=== PATIENT | female | born 1960 | race Caucasian/White ===

== ENCOUNTER 2020-04-08 17:48 | Observation (INO) | payer OTHER ==
--- NOTE | 2020-04-08 18:16 | PDOC ---
Rapid Medical Evaluation Time Seen by Provider: 04/08/20 18:13 Medical Evaluation: Allergies Allergy/AdvReac Type Severity Reaction Status Date / Time No Known Allergies Allergy Verified 04/08/20 18:13 04/08/20 18:13 Pt with PMH of HTN presents for evaluation of L sided chest pain starting yesterday. Exam: RRR, S1S2, lungs CTAB Orders: labs, EKG, IV Pt to proceed to the ER for further evaluation Discharge Disposition - Diagnosis Chest pain - Referrals - Patient Instructions - Post Discharge Activity
--- NOTE | 2020-04-08 20:23 | PDOC ---
Attending Attestation - Resident Resident Name: Delmy Scott - ED Attending Attestation I have performed the following: I have examined & evaluated the patient, The case was reviewed & discussed with the resident, I agree w/resident's findings & plan - HPI HPI: 04/08/20 20:15 see resident hpi - Physicial Exam PE: 04/08/20 20:16 see resident exam - Medical Decision Making 04/08/20 20:33 59-year-old female with 2 days of central chest pressure, reproducible on initial exam though with EKG significant for T wave inversions in leads V1 through V3 with no documented cardiac history Pending chest x-ray and labs will plan for telemetry observation Discharge - Discharge Information Problems reviewed: Yes Clinical Impression/Diagnosis: Chest pain - Follow up/Referral Referrals: ON STAFF,NOT [Primary Care Provider] - - Patient Discharge Instructions - Post Discharge Activity
--- NOTE | 2020-04-08 20:47 | PDOC ---
History of Present Illness - General Chief Complaint: Chest Pain Stated Complaint: CHEST PAIN Time Seen by Provider: 04/08/20 18:13 Past History - Medical History Allergies/Adverse Reactions: Allergies Allergy/AdvReac Type Severity Reaction Status Date / Time No Known Allergies Allergy Verified 04/08/20 18:13 COPD: No HTN: Yes - Psycho-Social/Smoking History Smoking History: Never smoked Have you smoked in the past 12 months: No - Substance Abuse Hx (Audit-C & DAST Scrn) How often the patient has a drink containing alcohol: Never Score: In Men: 4 or > Positive; In Women: 3 or > Positive: 0 Screen Result (Pos requires Nsg. Audit-10AR): Negative In the last yr the pt used illegal drug/Rx for NonMed reason: No Score: Yes response is considered Positive: 0 Screen Result (Positive result requires Nsg. DAST-10): Negative *Physical Exam - Vital Signs Last Vital Signs Temp Pulse Resp BP Pulse Ox 98.2 F 85 18 127/81 100 04/08/20 18:13 04/08/20 18:13 04/08/20 18:13 04/08/20 18:13 04/08/20 18:13 Heart Score/ECG Review - History History: Slightly suspicious - Electrocardiogram EKG: Non specific repolarization disturbance - Age Age: 45-65 - Risk Factors Risk Factors Heart Score: Yes Hx Hypertension, Yes Hx Obesity Based on the list above the patient has:: 1-2 risk factors - Troponin Troponin: </= normal limit - Score Heart Score - Total: 3 ED Treatment Course - LABORATORY CBC & Chemistry Diagram: 04/08/20 20:45 04/08/20 20:45 Medical Decision Making - Medical Decision Making 04/08/20 20:42 59yo F hx HTN (noncompliant with meds) presents from home c/o 2 days constant gradual onset mid-chest nonradiating chest pain unknown type nonpleuritic worse with palpation but not with movement started while cleaning (vacuuming, moving things, etc), worsening, no pain meds tried, no associated sx including N/V/lightheadedness/numbness/tingling/weakness/SOB/palpitations/F/C. Denies sick contacts, cough, fever, travel, smoking, hx DVT/PE, car rides or planes, recent surgeries, hx CA. PE notable for reproducible sternal CP HEART score 3 -EKG -CXR -CBC,CMP,Cardiac profile -Aspirin EKG: NSR, 83bpm, normal xis, normal intervals, TWIs in V1/V2/V3, no ST elevations or depressions, no priors for comparison CXR reviewed: No acute pathology Labs reviewed. No concerning findings. Trop neg. Admit tele obs ACS r/o Discharge - Discharge Information Problems reviewed: Yes Clinical Impression/Diagnosis: Chest pain Condition: Stable - Admission Yes - Follow up/Referral Referrals: ON STAFF,NOT [Primary Care Provider] - - Patient Discharge Instructions - Post Discharge Activity
[2020-04-08] MEDS ORDERED: ASPIRIN 81 MG CHEWABLE TABLETS PO ONE (20:55)
[2020-04-08 21:13] LABS: BASO % 0.6 % (0-2.0); EOS % 0.5 % (0-4.5); HEMATOCRIT 40.5 % (32.4-45.2); HEMOGLOBIN 13.5 GM/dL (10.7-15.3); LYMPH % 27.9 % (8-40); MCH 30.9 pg (25.7-33.7); MCHC 33.2 g/dl (32.0-36.0); MEAN CELL VOLUME 92.9 fl (80-96); MEAN PLT VOLUME 8.3 fl (7.5-11.1); MONO % 8.4 % (3.8-10.2); NEUT % 62.6 % (42.8-82.8); PLATELET COUNT 280 K/MM3 (134-434); RBC 4.36 M/mm3 (3.60-5.2); RDW 13.5 % (11.6-15.6); WHITE BLOOD COUNT 8.2 K/mm3 (4.0-10.0)
[2020-04-08] MEDS ORDERED: ASPIRIN 81 MG CHEWABLE TABLETS ONE (21:17)
[2020-04-08 21:21] LABS: INR 1.02 (0.83-1.09)
[2020-04-08 21:49] LABS: ALBUMIN 3.6 g/dl (3.4-5.0); ALK PHOS 130 U/L (45-117); ANION GAP 6 MMOL/L (8-16); BILIRUBIN,TOTAL 0.3 mg/dL (0.2-1); BLOOD UREA NITROGEN 16.9 mg/dL (7-18); CALCIUM 9.2 mg/dL (8.5-10.1); CHLORIDE 107 mmol/L (98-107); CO2 29 mmol/L (21-32); CREATININE 0.8 mg/dL (0.55-1.3); GLUCOSE,RANDOM 87 mg/dL (74-106); MAGNESIUM 2.3 mg/dL (1.8-2.4); POTASSIUM 4.5 mmol/L (3.5-5.1); SGOT/AST 24 U/L (15-37); SGPT/ALT 31 U/L (13-61); SODIUM 142 mmol/L (136-145); TOT PROT 7.1 g/dl (6.4-8.2)
--- OUTSIDE RECORDS SUMMARY | 2020-04-08 22:21 | XMS ---
:1960 Author Organization [facility] Care Team Providers Name Role Phone ALEJANDRA GOTTLIEB Unavailable Unavailable Re-disclosure Warning The records that you are about to access may contain information from federally- assisted alcohol or drug abuse programs. If such information is present, then the following federally mandated warning applies: This information has been disclosed to you from records protected by federal confidentiality rules (42 CFR part 2). The federal rules prohibit you from making any further disclosure of this information unless further disclosure is expressly permitted by the written consent of the person to whom it pertains or as otherwise permitted by 42 CFR part 2. A general authorization for the release of medical or other information is NOT sufficient for this purpose. The Federal rules restrict any use of the information to criminally investigate or prosecute any alcohol or drug abuse patient.The records that you are about to access may contain highly sensitive health information, the redisclosure of which is protected by Article 27-F of the [facility] Public Health law. If you continue you may haveaccess to information: Regarding HIV / AIDS; Provided by facilities licensed or operated by the [facility] Office of Mental Health; or Provided by the [facility] Office for People With Developmental Disabilities. If such information is present, then the following [facility] mandated warning applies: This information has been disclosed to you from confidential records which are protected by state law. State law prohibits you from making any further disclosure of this information without the specific written consent of the person to whom it pertains, or as otherwise permitted by law. Any unauthorized further disclosure in violation of state law may result in a fine or nursing home sentence or both. A general authorization for the release of medical or other information is NOT sufficient authorization for further disclosure. Encounters Encounter Providers Location Date Indications Data Source(s ) Outpatient Attender: [facility] 02/08/2020 Z03.818 [facility] ALEJANDRA BarrettAdmitter: 06:00:00 AM Health [facility] ALEJANDRA EDT [employer] E.Referrer: ALEJANDRA GOTTLIEB Z03.818 Insurance Providers Payer name Policy type Policy ID Covered Covered constitution party's Policy P pratima / Coverage constitution party ID relationship to Short Inf ormation type short TROY [id number] SP [id number] 400 HEALTH NON CAP Problems, Conditions, and Diagnoses Code Display Name Description Problem Type Effective Data Sour ce(s) Dates Z03.818 Encounter for ENCNTR FOR OBS Diagnosis 02/08/2020 [facility] observation for FOR SUSP EXPSR TO 06:00:00 AM [facility] suspected OTH BIOLG AGENTS [facility] Care [facility] poration exposure to other RULED OUT biological agents ruled out Results ID Date Data Source [id number] 02/08/2020 12:00:00 AM EDT [facility] Name Value Range Interpretation Code Description Data Sheryl rce(s) Supporting Document(s ) 2019-nCoV [facility] RNA XXX ZARA+probe- Imp This lab was ordered by [facility] and reported by [employer] Procedure
--- NOTE | 2020-04-08 22:31 | PN ---
Teaching Attending Note Name of Resident: Monika Hays ATTENDING PHYSICIAN STATEMENT I saw and evaluated the patient. I reviewed the resident's note and discussed the case with the resident. I agree with the resident's findings and plan as documented. SUBJECTIVE: 59yoF with h/o HTN no longer on medication who presents with 2 days of chest pain. Patient states she was vacuuming when she developed sudden, central chest pain that worsens with palpation. Denies shortness of breath, diaphoresis, palpitations, lightheadedness, syncope, cough. No known cardiac history. Has not taken any medications to try to alleviate the pain, which is constant and does not radiate. Patient noted to have reproducible chest pain on ED examination. EKG showed TWI in V1-V3 with no priors available for comparison. Labs unremarkable including negative troponin. CXR unremarkable. Patient received aspirin 324mg. OBJECTIVE: Last Vital Signs Temp Pulse Resp BP Pulse Ox 98.2 F 85 18 127/81 100 04/08/20 18:13 04/08/20 18:13 04/08/20 18:13 04/08/20 18:13 04/08/20 18:13 EXAM Gen: awake, alert, NAD HEENT: NC/AT. MMM CV: RRR, no MRG Resp: CTAB, unlabored Abd: Soft, NT, ND MSK: Chest pain reproducible to palpation lower sternum and parasternal. No peripheral edema Abd: SOft, NT, ND. +BS Neuro: CN II-XII grossly intact Psych: AOx3, appropriate mood/affect Laboratory Results - last 24 hr 04/08/20 04/08/20 04/08/20 20:45 20:45 20:45 WBC 8.2 RBC 4.36 Hgb 13.5 Hct 40.5 MCV 92.9 MCH 30.9 MCHC 33.2 RDW 13.5 Plt Count 280 MPV 8.3 Absolute Neuts (auto) 5.1 Neutrophils % 62.6 Lymphocytes % 27.9 Monocytes % 8.4 Eosinophils % 0.5 Basophils % 0.6 Nucleated RBC % 0 PT with INR 12.00 INR 1.02 Sodium 142 Potassium 4.5 Chloride 107 Carbon Dioxide 29 Anion Gap 6 L BUN 16.9 Creatinine 0.8 Est GFR (CKD-EPI)AfAm 94.19 Est GFR (CKD-EPI)NonAf 81.27 Random Glucose 87 Calcium 9.2 Magnesium 2.3 Total Bilirubin 0.3 AST 24 ALT 31 Alkaline Phosphatase 130 H Creatine Kinase 112 Troponin I < 0.02 Total Protein 7.1 Albumin 3.6 ASSESSMENT AND PLAN: 59yoF with h/o HTN no longer on medication who presents with 2 days of chest pain, found to have TWI in leads V1-V3. Abnormal EKG; reproducible chest pain EKG showing TWI in leads V1-V3, no prior available for comparison No known cardiac history Suspect chest pain is noncardiac, most likely musculoskeletal given reproducibility; however given abnormal EKG will observe - rpt EKG in AM - cycle troponin - lipids, A1c for risk stratification - echo - Tylenol, lidocaine patch h/o HTN: self-discontinued her medications. BP currently controlled. Monitor, consider resuming medications if needed DVT ppx: Lovenox subq
--- NOTE | 2020-04-08 22:32 | HP ---
CHIEF COMPLAINT:chest pain PCP: none HISTORY OF PRESENT ILLNESS: Pt is a 59 y/o female with HTN (has not taken meds in 2 weeks, pressure has been controlled) who presents with 1 day of sudden onset substernal chest pain. She says she was vacuuming yesterday afternoon when the pain started. It is a pressure, 8/10 in intensity. She did not take any OTC meds or applied heat or ice to it. Movement does not worsen the pain, only palpation. It does not radiate. She denies shortness of breath, headache, dizziness, changes in vision, nausea, vomiting, abdominal pain, or LE swelling. ER course was notable for: (1) trop negative x1 (2) CXR left costophrenic angle blunting (3) T wave inversions V1-V3 PAST MEDICAL HISTORY: HTN PAST SURGICAL HISTORY: none FAMILY HISTORY: mother-HTN Social History: Smoking: denies Alcohol: denies Drugs: denies Allergies No Known Allergies Allergy (Verified 04/08/20 18:13) HOME MEDICATIONS: losartan 100mg amlodipine 5mg has not taken in 2 weeks REVIEW OF SYSTEMS see HPI PHYSICAL EXAMINATION Vital Signs - 24 hr 04/08/20 18:13 Temperature 98.2 F Pulse Rate 85 Respiratory 18 Rate Blood Pressure 127/81 O2 Sat by Pulse 100 Oximetry (%) GENERAL: A&Ox3. HEAD: Normal with no signs of trauma. EYES: PERRL, EOMI. EARS, NOSE, THROAT: Ears normal, nares patent, moist mucous membranes. NECK: Normal range of motion. LUNGS: CTAB, no wheezes or crackles. Mid sternum tender to palpation as well as just laterally b/l. HEART: RRR, no murmur. ABDOMEN: Soft, nontender, not distended, normoactive bowel sounds. MUSCULOSKELETAL: Normal range of motion at all joints. UPPER EXTREMITIES: Warm, well-perfused. No peripheral edema. LOWER EXTREMITIES: Warm, well-perfused. No peripheral edema. NEUROLOGICAL: Cranial nerves II-XII grossly intact. Normal speech. PSYCHIATRIC: Cooperative. Good eye contact. Appropriate mood and affect. SKIN: Warm, dry, normal turgor. Laboratory Results - last 24 hr 04/08/20 04/08/20 04/08/20 20:45 20:45 20:45 WBC 8.2 RBC 4.36 Hgb 13.5 Hct 40.5 MCV 92.9 MCH 30.9 MCHC 33.2 RDW 13.5 Plt Count 280 MPV 8.3 Absolute Neuts (auto) 5.1 Neutrophils % 62.6 Lymphocytes % 27.9 Monocytes % 8.4 Eosinophils % 0.5 Basophils % 0.6 Nucleated RBC % 0 PT with INR 12.00 INR 1.02 Sodium 142 Potassium 4.5 Chloride 107 Carbon Dioxide 29 Anion Gap 6 L BUN 16.9 Creatinine 0.8 Est GFR (CKD-EPI)AfAm 94.19 Est GFR (CKD-EPI)NonAf 81.27 Random Glucose 87 Calcium 9.2 Magnesium 2.3 Total Bilirubin 0.3 AST 24 ALT 31 Alkaline Phosphatase 130 H Creatine Kinase 112 Troponin I < 0.02 Total Protein 7.1 Albumin 3.6 EKG HR 83, NSR, normal axis, normal intervals, T-wave inversions V1-V2, QTc 397 ASSESSMENT/PLAN: Pt is a 59 y/o female with HTN (has not taken meds in 2 weeks, pressure has been controlled) who presents with 1 day of sudden onset substernal chest pain. #chest pain -costochondritis vs r/o ACS, pain is reproducible, troponin negative x2 -T-wave inversions in V1-V2, no comparison available -Tylenol -lidocaine patch -repeat EKG -echo to check for wall motion abnormalities given T-wave inversions -card consult #HTN -pt has been normotensive -if pressure increases, may start amlodipine and/or losartan DVT Ppx Lovenox FEN no standing fluids monitor labs sodium-controlled diet dispo tele obs FULL CODE Family Medical History Family History: As Documented Visit type - Emergency Visit Emergency Visit: Yes ED Registration Date: 04/08/20 Care time: The patient presented to the Emergency Department on the above date and was hospitalized for further evaluation of their emergent condition. - New Patient This patient is new to me today: Yes Date on this admission: 04/09/20 - Critical Care Critical Care patient: No ATTENDING PHYSICIAN STATEMENT I saw and evaluated the patient. I reviewed the resident's note and discussed the case with the resident. I agree with the resident's findings and plan as documented. SUBJECTIVE: OBJECTIVE: ASSESSMENT AND PLAN:
[2020-04-08] MEDS ORDERED: ACETAMINOPHEN 325 MG TABLET (FP) PO PRN (23:32)
[2020-04-09] MEDS ORDERED: LIDOCAINE 5% TOPICAL PATCH TP ONE (04:13)
[2020-04-09 07:01] LABS: BASO % 0.3 % (0-2.0); EOS % 0.7 % (0-4.5); HEMATOCRIT 41.2 % (32.4-45.2); HEMOGLOBIN 13.6 GM/dL (10.7-15.3); LYMPH % 19.5 % (8-40); MCH 30.4 pg (25.7-33.7); MCHC 32.9 g/dl (32.0-36.0); MEAN CELL VOLUME 92.4 fl (80-96); MEAN PLT VOLUME 8.3 fl (7.5-11.1); MONO % 9.2 % (3.8-10.2); NEUT % 70.3 % (42.8-82.8); PLATELET COUNT 265 K/MM3 (134-434); RBC 4.45 M/mm3 (3.60-5.2); RDW 13.1 % (11.6-15.6); WHITE BLOOD COUNT 11.7 K/mm3 (4.0-10.0)
[2020-04-09 07:20] LABS: ALBUMIN 3.6 g/dl (3.4-5.0); BILIRUBIN,TOTAL 0.5 mg/dL (0.2-1); BLOOD UREA NITROGEN 19.3 mg/dL (7-18); CALCIUM 9.1 mg/dL (8.5-10.1); POTASSIUM 3.9 mmol/L (3.5-5.1); TOT PROT 6.7 g/dl (6.4-8.2)
[2020-04-09] MEDS ORDERED: ENOXAPARIN NA (PORCINE) 40 MG/0.4 ML DISP.SYRIN SQ ONE (08:14)
[2020-04-09] MEDS ORDERED: LIDOCAINE 5% TOPICAL PATCH ONE (08:14)
--- NOTE | 2020-04-09 08:37 | PN ---
Teaching Attending Note Name of Resident: Brook Lynne ATTENDING PHYSICIAN STATEMENT I saw and evaluated the patient. I reviewed the resident's note and discussed the case with the resident. I agree with the resident's findings and plan as documented. SUBJECTIVE: Patient is comfortable with NAD OBJECTIVE: Vital Signs Temperature 97.7 F 04/09/20 06:54 Pulse Rate 83 04/09/20 06:54 Respiratory Rate 17 04/09/20 06:54 Blood Pressure 151/92 04/09/20 06:54 O2 Sat by Pulse Oximetry (%) 98 04/09/20 06:54 PE: per resident's note CBCD WBC 11.7 K/mm3 (4.0-10.0) H 04/09/20 05:36 RBC 4.45 M/mm3 (3.60-5.2) 04/09/20 05:36 Hgb 13.6 GM/dL (10.7-15.3) 04/09/20 05:36 Hct 41.2 % (32.4-45.2) 04/09/20 05:36 MCV 92.4 fl (80-96) 04/09/20 05:36 MCHC 32.9 g/dl (32.0-36.0) 04/09/20 05:36 RDW 13.1 % (11.6-15.6) 04/09/20 05:36 Plt Count 265 K/MM3 (134-434) 04/09/20 05:36 MPV 8.3 fl (7.5-11.1) 04/09/20 05:36 CMP Sodium 143 mmol/L (136-145) 04/09/20 05:36 Potassium 3.9 mmol/L (3.5-5.1) 04/09/20 05:36 Chloride 110 mmol/L (98-107) H 04/09/20 05:36 Carbon Dioxide 27 mmol/L (21-32) 04/09/20 05:36 Anion Gap 6 MMOL/L (8-16) L 04/09/20 05:36 BUN 19.3 mg/dL (7-18) H 04/09/20 05:36 Creatinine 1.0 mg/dL (0.55-1.3) 04/09/20 05:36 Random Glucose 89 mg/dL (74-106) 04/09/20 05:36 Calcium 9.1 mg/dL (8.5-10.1) 04/09/20 05:36 Total Bilirubin 0.5 mg/dL (0.2-1) 04/09/20 05:36 AST 18 U/L (15-37) 04/09/20 05:36 ALT 28 U/L (13-61) 04/09/20 05:36 Alkaline Phosphatase 100 U/L (45-117) 04/09/20 05:36 Total Protein 6.7 g/dl (6.4-8.2) 04/09/20 05:36 Albumin 3.6 g/dl (3.4-5.0) 04/09/20 05:36 CARDIAC ENZYMES Creatine Kinase 112 U/L (26-192) 04/08/20 20:45 Troponin I < 0.02 ng/ml (0.00-0.05) 04/09/20 03:03 Current Medications Generic Name Dose Route Start Last Admin Trade Name Freq PRN Reason Stop Dose Admin Acetaminophen 975 mg 04/08/20 23:32 Tylenol - PO Q6H PRN PAIN LEVEL 1-5 Enoxaparin Sodium 40 mg 04/09/20 10:00 Lovenox - SQ DAILY ON LICENSE OF [facility] Lidocaine 1 patch 04/10/20 10:00 Lidoderm Patch - TP DAILY ON LICENSE OF [facility] Miscellaneous 1 each 04/09/20 16:00 Lidoderm Patch Removal MC 04/09/20 16:01 ONCE@1600 ONE Miscellaneous 1 each 04/10/20 22:00 Lidoderm Patch Removal MC DAILY@2200 DAVID CXR: no acute pathology ASSESSMENT AND PLAN: This patient is a 59yof with PMhx of HTN no longer on medication who presents with 2 days of chest pain, and placed on observation due to having abnl ekg changes with chest pain #Acute chest pain r/o ACS, trops x 3, check lipids, A1c, #EKG changes V1-V3 inversion: repeat EKG, cardio consult , echo, stress test in am #Hx of HTN: self-discontinued her medications. BP currently controlled. Monitor. consider resuming medications if needed DVT ppx: Lovenox subq
--- NOTE | 2020-04-09 08:47 | CON.CARD ---
Consult Consult Specialty:: cardiology Reason for Consultation:: chest pain - History of Present Illness Chief Complaint: Pt A&Ox3; anxious; chest pain absent presently; able to elicit similar ("but not exactly the same") pain with palpation of lower sternum History of Present Illness: Ms. Lucio is a 59-year-old woman (b. [facility]) with PMHx HTN (on amlodipine and losartan; takes them prn "because I do not like to take medications"), anxiety, obese, sedentary, ? cholesterol, who presented with 2 days of central chest pressure, reproducible on initial exam, though also with EKG significant for T wave inversions in leads V1 through V3; no documented cardiac history. Family hx: mother had IA age 70. The chest discomfort began after pt had been cleaning home, including vacuuming. Never smoked; no alcohol. 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 - History Source History Provided By: Patient, Family Member (son (Sandro; telephone)), Medical Record Limitations to Obtaining History: No Limitations - Past Medical History Cardio/Vascular: Yes: HTN Reproductive: Yes: Postmenopausal ...: No - Smoking History Smoking history: Never smoked Have you smoked in the past 12 months: No Home Medications - Allergies Allergies/Adverse Reactions: Allergies Allergy/AdvReac Type Severity Reaction Status Date / Time No Known Allergies Allergy Verified 04/08/20 18:13 - Home Medications Home Medications: Ambulatory Orders Amlodipine Besylate [Norvasc -] 5 mg PO DAILY 04/09/20 Famotidine [Pepcid -] 40 mg PO DAILY 04/09/20 Losartan Potassium 100 mg PO DAILY 04/09/20 Meloxicam 15 mg PO DAILY 04/09/20 Review of Systems - Review of Systems Constitutional: reports: No Symptoms Eyes: reports: No Symptoms HENT: reports: No Symptoms Neck: reports: No Symptoms Cardiovascular: reports: Chest Pain Respiratory: reports: Exercise Intolerance Gastrointestinal: reports: No Symptoms Genitourinary: reports: No Symptoms Breasts: reports: No Symptoms Reported Musculoskeletal: reports: No Symptoms Integumentary: reports: No Symptoms Neurological: reports: No Symptoms Endocrine: reports: No Symptoms Hematology/Lymphatic: reports: No Symptoms Psychiatric: reports: Anxiety - Risk Factors Known Risk Factors: Yes: Age, Hypercholesterolemia, Hypertension, Physical Inactivity Vital Signs: Vital Signs Temperature 97.7 F 04/09/20 06:54 Pulse Rate 83 04/09/20 06:54 Respiratory Rate 17 04/09/20 06:54 Blood Pressure 151/92 04/09/20 06:54 O2 Sat by Pulse Oximetry (%) 98 04/09/20 06:54 Constitutional: Yes: Anxious, Obese Eyes: Yes: WNL HENT: Yes: WNL Neck: Yes: WNL Respiratory: Yes: WNL Gastrointestinal: Yes: Soft, Abdomen, Obese Renal/: No: Anuria Cardiovascular: Yes: Regular Rate and Rhythm JVD: No Carotid Bruit: No PMI: Non-Displaced Heart Sounds: Yes: S1, S2, S4 Murmur: Yes: Systolic Murmur, Grade 1 Musculoskeletal: Yes: WNL Extremities: Yes: WNL Edema: No Peripheral Pulses WNL: Yes Integumentary: Yes: WNL Neurological: Yes: WNL ...Motor Strength: WNL Psychiatric: Yes: Alert, Oriented, Other (anxiety) - Other Data Labs, Other Data: CBC, BMP 04/09/20 05:36 04/09/20 05:36 INR, PTT INR 1.02 (0.83-1.09) 04/08/20 20:45 Troponin, BNP 04/08/20 04/09/20 20:45 03:03 Troponin I < 0.02 < 0.02 Troponin, BNP 04/08/20 04/09/20 20:45 03:03 Troponin I < 0.02 < 0.02 Laboratory Results - last 24 hr 04/09/20 04/09/20 04/09/20 03:03 05:36 05:36 WBC 11.7 H RBC 4.45 Hgb 13.6 Hct 41.2 MCV 92.4 MCH 30.4 MCHC 32.9 RDW 13.1 Plt Count 265 MPV 8.3 Absolute Neuts (auto) 8.2 H Neutrophils % 70.3 Lymphocytes % 19.5 D Monocytes % 9.2 Eosinophils % 0.7 Basophils % 0.3 Nucleated RBC % 0 Sodium 143 Potassium 3.9 Chloride 110 H Carbon Dioxide 27 Anion Gap 6 L BUN 19.3 H Creatinine 1.0 Est GFR (CKD-EPI)AfAm 71.92 Est GFR (CKD-EPI)NonAf 62.05 Random Glucose 89 Calcium 9.1 Magnesium 2.0 Total Bilirubin 0.5 AST 18 ALT 28 Alkaline Phosphatase 100 Troponin I < 0.02 Total Protein 6.7 Albumin 3.6 Triglycerides 152 H Cholesterol 225 H Total LDL Cholesterol 149 H HDL Cholesterol 46 TSH 3.42 Echo: Image Reviewed Imaging - Results Chest X-ray: Image Reviewed Ultrasound: Pending (ECHO) EKG: Image Reviewed Assessment/Plan Atypical chest pain TNI < 0.03-->0.02 HTN (noncompliant to amlodipine and losartan). obesity EKG changes (borderline EKG: NSR: T wave inversion V1-3). anxiety Pl: Serial EKGs Serial BP checks Lipids; TSH ECHO for LVEF, wall motion, valve status. Stress treadmill MIBI. Discussed pt's condition with her, her son, and her daughter. The importance of modifying diet, losing weight, increasing exercise, and maintaining compliance to medications was emphasized.
[2020-04-09] MEDS: ENOXAPARIN NA (PORCINE) 40 MG/0.4 ML DISP.SYRIN SQ SCH (09:03)
--- NOTE | 2020-04-09 09:39 | EKG ---
Test Reason : Blood Pressure : / mmHG Vent. Rate : 083 BPM Atrial Rate : 083 BPM P-R Int : 156 ms QRS Dur : 076 ms QT Int : 338 ms P-R-T Axes : 040 030 047 degrees QTc Int : 397 ms NORMAL SINUS RHYTHM POSSIBLE LEFT ATRIAL ENLARGEMENT BORDERLINE ECG NO PREVIOUS ECGS AVAILABLE Confirmed by Tom Lopez ([id number]) on 04/09/2020 9:39:20 AM Referred By: Confirmed By:Tom Lopez
[2020-04-09] MEDS ORDERED: ATORVASTATIN CA 40 MG TABLET (FP) PO ONE (11:00)
--- NOTE | 2020-04-09 12:10 | ECHO ---
Version: 1 Name: NANCY PARKER Exam: Adult Echocardiogram Study Date: 04/09/2020, 10:57 AM Age: 59 Years MMode/2D Measurements & Calculations IVSd: 0.80 cm LVIDs: 3.4 cm LVIDd: 4.6 cm LVPWd: 0.86 cm LAV (MOD-bp): 43.0 ml ACS: 1.76 cm Ao root diam: 2.7 cm LVOT diam: 1.99 cm LA dimension: 3.2 cm Doppler Measurements & Calculations MV E max bill: 67.1 cm/sec Med E/e': 12.2 MV A max bill: 73.1 cm/sec Med Peak E' Bill: 5.5 cm/sec MV E/A: 0.92 Lat E/e': 5.4 Lat Peak E' Bill: 12.4 cm/sec Ao max P.7 mmHg GOPI(I,D): 2.18 cm Ao mean P.2 mmHg LV V1 mean: 59.0 cm/sec Ao V2 max: 119.4 cm/sec LV V1 mean P.64 mmHg PI end-d bill: 71.9 cm/sec TR max bill: 213.0 cm/sec TR max P.9 mmHg Procedure A two-dimensional transthoracic echocardiogram with color flow and Doppler was performed. The patien t was in normal sinus rhythm during the exam. Left Ventricle The left ventricle is normal in size. Left ventricular systolic function is normal. Ejection Fractio n = 55%. The transmitral spectral Doppler flow pattern is suggestive of impaired LV relaxation. Right Ventricle The right ventricle is normal in size and function. Atria Normal left and right atrial size and function. Mitral Valve The mitral valve is normal. There is trace mitral regurgitation. Tricuspid Valve The tricuspid valve is normal. No tricuspid regurgitation. Right ventricular systolic pressure is el evated at 37 mmhg. Assuming the RA pressure is 10 mmHg. Aortic Valve The aortic valve is normal in structure and function. The aortic valve is trileaflet. No aortic regu rgitation is present. Pulmonic Valve The pulmonic valve is not well seen, but is grossly normal. There is no pulmonic valvular regurgitat ion. Great Vessels The aortic root is normal size. Normal aortic arch, descending and ascending aorta. Pericardium/Pleura There is no pericardial effusion. Tech Comments TDS due to body habitus. Summary Statements Left ventricular systolic function is normal. The transmitral spectral Doppler flow pattern is suggestive of impaired LV relaxation. The right ventricle is normal in size and function. There is trace mitral regurgitation. There is no pericardial effusion. MD Cedric Jade 04/09/2020, 12:09 PM Ordering Physician: Monika Hays Referring Physician: MONIKA HAYS Performed By: Hortensia Hughes
[2020-04-09] MEDS ORDERED: amLODIPine BESYLATE 5 MG TABLET (FP) ONE (12:26)
[2020-04-09] MEDS ORDERED: ATORVASTATIN CA 40 MG TABLET (FP) ONE (12:27)
[2020-04-09] MEDS: amLODIPine BESYLATE 5 MG TABLET (FP) PO SCH (12:35)
--- NOTE | 2020-04-09 14:22 | PN ---
Physical Exam: SUBJECTIVE: Patient seen and examined evaluated at bedside, reports a sub sternal chest pain for 2 days, started after cleaning her house, currently no pain in ER. Denies any epigastric pain, abdominal pain, headache, nausea, vomiting, diarrhea, fever, chills OBJECTIVE: Vital Signs Period Temp Pulse Resp BP Sys/Roberts Pulse Ox Last 24 Hr 97.1 F-98.2 F 79-85 17-20 115-151/78-92 96-100 GENERAL: The patient is awake, alert, and fully oriented, in no acute distress. HEAD: Normal with no signs of trauma. EYES: PERRL, extraocular movements intact, sclera anicteric, conjunctiva clear. No ptosis. ENT: Ears normal, nares patent, oropharynx clear without exudates, moist mucous membranes. NECK: Trachea midline, full range of motion, supple. LUNGS: Breath sounds equal, clear to auscultation bilaterally, no wheezes, no crackles, no accessory muscle use. HEART: Regular rate and rhythm, S1, S2 without murmur, rub or gallop. TTP at the lower border of the sternum ABDOMEN: Soft, nontender, nondistended, normoactive bowel sounds, no guarding, no rebound, no hepatosplenomegaly, no masses. EXTREMITIES: 2+ pulses, warm, well-perfused, no edema. NEUROLOGICAL: Cranial nerves II through XII grossly intact. Normal speech, gait not observed. PSYCH: Normal mood, normal affect. SKIN: Warm, dry, normal turgor, no rashes or lesions noted Laboratory Results - last 24 hr 04/08/20 04/08/20 04/08/20 20:45 20:45 20:45 WBC 8.2 RBC 4.36 Hgb 13.5 Hct 40.5 MCV 92.9 MCH 30.9 MCHC 33.2 RDW 13.5 Plt Count 280 MPV 8.3 Absolute Neuts (auto) 5.1 Neutrophils % 62.6 Lymphocytes % 27.9 Monocytes % 8.4 Eosinophils % 0.5 Basophils % 0.6 Nucleated RBC % 0 PT with INR 12.00 INR 1.02 Sodium 142 Potassium 4.5 Chloride 107 Carbon Dioxide 29 Anion Gap 6 L BUN 16.9 Creatinine 0.8 Est GFR (CKD-EPI)AfAm 94.19 Est GFR (CKD-EPI)NonAf 81.27 Random Glucose 87 Calcium 9.2 Magnesium 2.3 Total Bilirubin 0.3 AST 24 ALT 31 Alkaline Phosphatase 130 H Creatine Kinase 112 Troponin I < 0.02 Total Protein 7.1 Albumin 3.6 Triglycerides Cholesterol Total LDL Cholesterol HDL Cholesterol TSH 04/09/20 04/09/20 04/09/20 03:03 05:36 05:36 WBC 11.7 H RBC 4.45 Hgb 13.6 Hct 41.2 MCV 92.4 MCH 30.4 MCHC 32.9 RDW 13.1 Plt Count 265 MPV 8.3 Absolute Neuts (auto) 8.2 H Neutrophils % 70.3 Lymphocytes % 19.5 D Monocytes % 9.2 Eosinophils % 0.7 Basophils % 0.3 Nucleated RBC % 0 PT with INR INR Sodium 143 Potassium 3.9 Chloride 110 H Carbon Dioxide 27 Anion Gap 6 L BUN 19.3 H Creatinine 1.0 Est GFR (CKD-EPI)AfAm 71.92 Est GFR (CKD-EPI)NonAf 62.05 Random Glucose 89 Calcium 9.1 Magnesium 2.0 Total Bilirubin 0.5 AST 18 ALT 28 Alkaline Phosphatase 100 Creatine Kinase Troponin I < 0.02 Total Protein 6.7 Albumin 3.6 Triglycerides 152 H Cholesterol 225 H Total LDL Cholesterol 149 H HDL Cholesterol 46 TSH 3.42 Active Medications Generic Name Dose Route Start Last Admin Trade Name Freq PRN Reason Stop Dose Admin Amlodipine Besylate 5 mg 04/09/20 10:45 04/09/20 12:35 Norvasc - PO 5 mg DAILY [facility] Administration Enoxaparin Sodium 40 mg 04/09/20 10:00 04/09/20 09:03 Lovenox - SQ 40 mg DAILY [facility] Administration Lidocaine 1 patch 04/10/20 10:00 Lidoderm Patch - TP DAILY [facility] Miscellaneous 1 each 04/09/20 16:00 Lidoderm Patch Removal MC 04/09/20 16:01 ONCE@1600 ONE Miscellaneous 1 each 04/10/20 22:00 Lidoderm Patch Removal MC DAILY@2200 [facility] ASSESSMENT/PLAN: 59 Y F with PMH of HTN who presents with 2 day of sudden onset substernal chest pain, admitted for atypical chest pain #Atypical Chest pain - MSK pain vs r/o ACS - EKG: HR 83, NSR, normal axis, normal intervals, T-wave inversions V1-V2, QTc 397, no comparison available - Trops negative x 2 - Cardiology following, Dr. Cuba, recs appreciated - Echo: impaired LV relaxation, EF 55% - Stress treadmill MIBI: pending #HTN - BP 151/92 - on Norvasc and Losartan, non compliant, last taken 2 weeks ago - Resumed her home meds #HLD - ASCVD risk Score 6.4%: rec mod intensity statin because 10 year risk between 5-7.5% - Started Lipitor 20mg DVT Ppx - Lovenox sq FEN - no standing fluids - Continue to monitor electrolytes - sodium-controlled diet Dispo - will continue to monitor in tele obs, pending stress test evaluation. Visit type - Emergency Visit Emergency Visit: Yes ED Registration Date: 04/08/20 Care time: The patient presented to the Emergency Department on the above date and was hospitalized for further evaluation of their emergent condition. - New Patient This patient is new to me today: No - Critical Care Critical Care patient: No - Discharge Referral Referred to [facility] Med P.C.: No ATTENDING PHYSICIAN STATEMENT I saw and evaluated the patient. I reviewed the resident's note and discussed the case with the resident. I agree with the resident's findings and plan as documented. SUBJECTIVE: OBJECTIVE: ASSESSMENT AND PLAN:
[2020-04-09] MEDS ORDERED: LIDOCAINE PATCH REMOVAL MC ONE (16:00)
[2020-04-09 18:43] VITALS: BMI 33.8
[2020-04-09] MEDS ORDERED: ATORVASTATIN CA 20 MG TABLET (FP) PO SCH (22:00)
[2020-04-10 07:36] LABS: BASO % 0.6 % (0-2.0); HEMATOCRIT 42.6 % (32.4-45.2); HEMOGLOBIN 14.5 GM/dL (10.7-15.3); LYMPH % 31.5 % (8-40); MCH 31.6 pg (25.7-33.7); MCHC 34.1 g/dl (32.0-36.0); MEAN CELL VOLUME 92.6 fl (80-96); NEUT % 58.9 % (42.8-82.8); PLATELET COUNT 267 K/MM3 (134-434); RDW 13.1 % (11.6-15.6); WHITE BLOOD COUNT 6.9 K/mm3 (4.0-10.0)
[2020-04-10 08:07] LABS: ALBUMIN 3.7 g/dl (3.4-5.0); BILIRUBIN,TOTAL 0.6 mg/dL (0.2-1); BLOOD UREA NITROGEN 18.5 mg/dL (7-18); CALCIUM 8.9 mg/dL (8.5-10.1); CREATININE 0.8 mg/dL (0.55-1.3); MAGNESIUM 2.3 mg/dL (1.8-2.4); POTASSIUM 3.7 mmol/L (3.5-5.1); TOT PROT 7.2 g/dl (6.4-8.2)
--- NOTE | 2020-04-10 09:48 | PN ---
Progress Note, Physician History of Present Illness: Ms. Lucio is a 59-year-old woman (b. [facility]) with PMHx HTN (on amlodipine and losartan; takes them prn "because I do not like to take medications"), anxiety, obese, sedentary, ? cholesterol, who presented with 2 days of central chest pressure, reproducible on initial exam, though also with EKG significant for T wave inversions in leads V1 through V3; no documented cardiac history. Family hx: mother had [place] age 70. The chest discomfort began after pt had been cleaning home, including vacuuming. - Current Medication List Current Medications: Active Medications Amlodipine Besylate (Norvasc -) 5 mg PO DAILY [facility] Last Admin: 04/09/20 12:35 Dose: 5 mg Documented by: Atorvastatin Calcium (Lipitor -) 20 mg PO HS [facility] Last Admin: 04/09/20 21:43 Dose: 20 mg Documented by: Enoxaparin Sodium (Lovenox -) 40 mg SQ DAILY [facility] Last Admin: 04/09/20 09:03 Dose: 40 mg Documented by: Lidocaine (Lidoderm Patch -) 1 patch TP DAILY [facility] Miscellaneous (Lidoderm Patch Removal) 1 each MC DAILY@2200 [facility] - Objective Vital Signs: Vital Signs Temperature 97.8 F 04/10/20 09:32 Pulse Rate 86 04/10/20 09:32 Respiratory Rate 20 04/10/20 09:32 Blood Pressure 129/85 04/10/20 09:32 O2 Sat by Pulse Oximetry (%) 96 04/10/20 09:32 Eyes: Yes: WNL, Conjunctiva Clear, EOM Intact HENT: Yes: WNL, Atraumatic, Normocephalic Neck: Yes: WNL, Supple, Trachea Midline Cardiovascular: Yes: WNL, Regular Rate and Rhythm Respiratory: Yes: WNL, Regular, CTA Bilaterally Gastrointestinal: Yes: WNL, Normal Bowel Sounds Genitourinary: Yes: WNL Musculoskeletal: Yes: WNL Extremities: Yes: WNL Edema: No Integumentary: Yes: WNL Neurological: Yes: WNL, Alert, Oriented ...Motor Strength: WNL Psychiatric: Yes: WNL Labs: CBC, BMP 04/10/20 07:11 04/10/20 07:11 INR, PTT INR 1.02 (0.83-1.09) 04/08/20 20:45 Assessment/Plan Atypical chest pain TNI < 0.03-->0.02 HTN (noncompliant to amlodipine and losartan). obesity EKG changes (borderline EKG: NSR: T wave inversion V1-3). anxiety Pl: Serial EKGs Serial BP checks Lipids; TSH ECHO for LVEF, wall motion, valve status. Stress treadmill MIBI. Discussed pt's condition with her, her son, and her daughter. The importance of modifying diet, losing weight, increasing exercise, and maintaining compliance to medications was emphasized.
[2020-04-10] MEDS ORDERED: LIDOCAINE 5% TOPICAL PATCH TP SCH (10:00)
--- NOTE | 2020-04-10 10:01 | EKG ---
Test Reason : Blood Pressure : / mmHG Vent. Rate : 088 BPM Atrial Rate : 088 BPM P-R Int : 154 ms QRS Dur : 082 ms QT Int : 312 ms P-R-T Axes : 031 005 020 degrees QTc Int : 377 ms NORMAL SINUS RHYTHM MINIMAL VOLTAGE CRITERIA FOR LVH, MAY BE NORMAL VARIANT BORDERLINE ECG WHEN COMPARED WITH ECG OF 08-APR-2020 18:08, NONSPECIFIC T WAVE ABNORMALITY NOW EVIDENT IN INFERIOR LEADS NONSPECIFIC T WAVE ABNORMALITY HAS REPLACED INVERTED T WAVES IN ANTERIOR LEADS Confirmed by Tom Lopez ([id number]) on 04/10/2020 10:01:32 AM Referred By: Abdi CARPENTER Confirmed By:Tom Lopez
[2020-04-10] MEDS: ENOXAPARIN NA (PORCINE) 40 MG/0.4 ML DISP.SYRIN SQ SCH (12:10)
[2020-04-10] MEDS: amLODIPine BESYLATE 5 MG TABLET (FP) PO SCH (12:11)
[2020-04-10 15:06] VITALS: BP 123/70; PULSE 84; TEMP 98
--- NOTE | 2020-04-10 15:14 | PN ---
Physical Exam: SUBJECTIVE: Patient seen and examined at bedside, reports some improvement of her pain. Denies any acute chest pain, nausea, vomiting, sweating, fever, chills, SOB OBJECTIVE: Vital Signs Period Temp Pulse Resp BP Sys/Roberts Pulse Ox Last 24 Hr 97.6 F-98 F 76-95 18-20 102-136/52-85 96-100 GENERAL: The patient is awake, alert, and fully oriented, in no acute distress. HEAD: Normal with no signs of trauma. EYES: PERRL, extraocular movements intact, sclera anicteric, conjunctiva clear. No ptosis. ENT: Ears normal, nares patent, oropharynx clear without exudates, moist mucous membranes. NECK: Trachea midline, full range of motion, supple. LUNGS: Breath sounds equal, clear to auscultation bilaterally, no wheezes, no crackles, no accessory muscle use. HEART: Regular rate and rhythm, S1, S2 without murmur, rub or gallop. TTP at the lower border of the sternum ABDOMEN: Soft, nontender, nondistended, normoactive bowel sounds, no guarding, no rebound, no hepatosplenomegaly, no masses. EXTREMITIES: 2+ pulses, warm, well-perfused, no edema. NEUROLOGICAL: Cranial nerves II through XII grossly intact. Normal speech, gait not observed. PSYCH: Normal mood, normal affect. SKIN: Warm, dry, normal turgor, no rashes or lesions noted Laboratory Results - last 24 hr 04/09/20 04/10/20 04/10/20 06:00 07:11 07:11 WBC 6.9 RBC 4.60 Hgb 14.5 Hct 42.6 MCV 92.6 MCH 31.6 MCHC 34.1 RDW 13.1 Plt Count 267 MPV 8.0 Absolute Neuts (auto) 4.1 Neutrophils % 58.9 Lymphocytes % 31.5 D Monocytes % 8.0 Eosinophils % 1.0 Basophils % 0.6 Nucleated RBC % 0 Sodium 142 Potassium 3.7 Chloride 108 H Carbon Dioxide 27 Anion Gap 7 L BUN 18.5 H Creatinine 0.8 Est GFR (CKD-EPI)AfAm 94.19 Est GFR (CKD-EPI)NonAf 81.27 Random Glucose 117 H Hemoglobin A1c % Calcium 8.9 Phosphorus 4.0 Magnesium 2.3 Total Bilirubin 0.6 AST 17 ALT 27 Alkaline Phosphatase 106 Total Protein 7.2 Albumin 3.7 COVID-19 ([facility]) Not detected 04/10/20 07:11 WBC RBC Hgb Hct MCV MCH MCHC RDW Plt Count MPV Absolute Neuts (auto) Neutrophils % Lymphocytes % Monocytes % Eosinophils % Basophils % Nucleated RBC % Sodium Potassium Chloride Carbon Dioxide Anion Gap BUN Creatinine Est GFR (CKD-EPI)AfAm Est GFR (CKD-EPI)NonAf Random Glucose Hemoglobin A1c % 5.6 Calcium Phosphorus Magnesium Total Bilirubin AST ALT Alkaline Phosphatase Total Protein Albumin COVID-19 ([facility]) Active Medications Generic Name Dose Route Start Last Admin Trade Name Freq PRN Reason Stop Dose Admin Amlodipine Besylate 5 mg 04/09/20 10:45 04/10/20 12:11 Norvasc - PO 5 mg DAILY [facility] Administration Atorvastatin Calcium 20 mg 04/09/20 22:00 04/09/20 21:43 Lipitor - PO 20 mg HS [facility] Administration Enoxaparin Sodium 40 mg 04/09/20 10:00 04/10/20 12:10 Lovenox - SQ 40 mg DAILY [facility] Administration Lidocaine 1 patch 04/10/20 10:00 04/10/20 12:11 Lidoderm Patch - TP 1 patch DAILY [facility] Administration Miscellaneous 1 each 04/10/20 22:00 Lidoderm Patch Removal MC DAILY@2200 [facility] ASSESSMENT/PLAN: 59 Y F with PMH of HTN who presents with 2 day of sudden onset substernal chest pain, admitted for atypical chest pain #Atypical Chest pain - MSK pain vs r/o ACS - EKG: HR 83, NSR, normal axis, normal intervals, T-wave inversions V1-V2, QTc 397, no comparison available - Trops negative x 2 - Cardiology following, Dr. Cuba, recs appreciated - Echo: impaired LV relaxation, EF 55% - Stress treadmill MIBI Exercise: Normal EKG response to Lexiscan stress, no ischemia/arrythmia Nuclear: Normal myocardial perfusion w/o evidence of ischemia, EF 65% #HTN - BP stabe - Continue Norvasc - will continue to monitor #HLD - ASCVD risk Score 6.4%: rec mod intensity statin because 10 year risk between 5-7.5% - Started Lipitor 20mg DVT Ppx - Lovenox sq FEN - no standing fluids - Continue to monitor electrolytes - sodium-controlled diet Dispo - will continue to monitor in tele Visit type - Emergency Visit Emergency Visit: Yes ED Registration Date: 04/08/20 Care time: The patient presented to the Emergency Department on the above date and was hospitalized for further evaluation of their emergent condition. - New Patient This patient is new to me today: No - Critical Care Critical Care patient: No - Discharge Referral Referred to [facility] Med P.C.: No ATTENDING PHYSICIAN STATEMENT I saw and evaluated the patient. I reviewed the resident's note and discussed the case with the resident. I agree with the resident's findings and plan as documented. SUBJECTIVE: OBJECTIVE: ASSESSMENT AND PLAN:
--- NOTE | 2020-04-10 17:13 | PN ---
Teaching Attending Note Name of Resident: Ronaldo Menchaca ATTENDING PHYSICIAN STATEMENT I saw and evaluated the patient. I reviewed the resident's note and discussed the case with the resident. I agree with the resident's findings and plan as documented. SUBJECTIVE: Patient is comfortable with NAd OBJECTIVE: Vital Signs Temperature 98 F 04/10/20 14:05 Pulse Rate 84 04/10/20 14:05 Respiratory Rate 20 04/10/20 14:05 Blood Pressure 123/70 04/10/20 14:05 O2 Sat by Pulse Oximetry (%) 96 04/10/20 09:32 PE:per resident's note CBCD WBC 6.9 K/mm3 (4.0-10.0) 04/10/20 07:11 RBC 4.60 M/mm3 (3.60-5.2) 04/10/20 07:11 Hgb 14.5 GM/dL (10.7-15.3) 04/10/20 07:11 Hct 42.6 % (32.4-45.2) 04/10/20 07:11 MCV 92.6 fl (80-96) 04/10/20 07:11 MCHC 34.1 g/dl (32.0-36.0) 04/10/20 07:11 RDW 13.1 % (11.6-15.6) 04/10/20 07:11 Plt Count 267 K/MM3 (134-434) 04/10/20 07:11 MPV 8.0 fl (7.5-11.1) 04/10/20 07:11 CMP Sodium 142 mmol/L (136-145) 04/10/20 07:11 Potassium 3.7 mmol/L (3.5-5.1) 04/10/20 07:11 Chloride 108 mmol/L (98-107) H 04/10/20 07:11 Carbon Dioxide 27 mmol/L (21-32) 04/10/20 07:11 Anion Gap 7 MMOL/L (8-16) L 04/10/20 07:11 BUN 18.5 mg/dL (7-18) H 04/10/20 07:11 Creatinine 0.8 mg/dL (0.55-1.3) 04/10/20 07:11 Random Glucose 117 mg/dL (74-106) H 04/10/20 07:11 Calcium 8.9 mg/dL (8.5-10.1) 04/10/20 07:11 Total Bilirubin 0.6 mg/dL (0.2-1) 04/10/20 07:11 AST 17 U/L (15-37) 04/10/20 07:11 ALT 27 U/L (13-61) 04/10/20 07:11 Alkaline Phosphatase 106 U/L (45-117) 04/10/20 07:11 Total Protein 7.2 g/dl (6.4-8.2) 04/10/20 07:11 Albumin 3.7 g/dl (3.4-5.0) 04/10/20 07:11 CARDIAC ENZYMES Creatine Kinase 112 U/L (26-192) 04/08/20 20:45 Troponin I < 0.02 ng/ml (0.00-0.05) 04/09/20 03:03 Current Medications Generic Name Dose Route Start Last Admin Trade Name Freq PRN Reason Stop Dose Admin Amlodipine Besylate 5 mg 04/09/20 10:45 04/10/20 12:11 Norvasc - PO 5 mg DAILY REPLACED BY [facility] Administration Atorvastatin Calcium 20 mg 04/09/20 22:00 04/09/20 21:43 Lipitor - PO 20 mg HS [facility] Administration Enoxaparin Sodium 40 mg 04/09/20 10:00 04/10/20 12:10 Lovenox - SQ 40 mg DAILY REPLACED BY [facility] Administration Lidocaine 1 patch 04/10/20 10:00 04/10/20 12:11 Lidoderm Patch - TP 1 patch DAILY [facility] Administration Miscellaneous 1 each 04/10/20 22:00 Lidoderm Patch Removal DAILY@2200 REPLACED BY [facility] Home Medications Medication Instructions Recorded Amlodipine Besylate [Norvasc -] 5 mg PO DAILY 04/09/20 Famotidine [Pepcid -] 40 mg PO DAILY 04/09/20 Losartan Potassium 100 mg PO DAILY 04/09/20 XR: no acute pathology ASSESSMENT AND PLAN: This patient is a 59yof with PMhx of HTN no longer on medication who presents with 2 days of chest pain, and placed on observation due to having abnl ekg changes with chest pain #Acute chest pain r/o ACS, 3 sets of trops negative, stress test negative #EKG changes V1-V3 inversion: repeat EKG, cardio consult , echo, stress test negative #Hx of HTN: controlled now on amlodipine , will dc on norvasc 5mg daily . follow up with primary or the rsident's clinic within a week DVT ppx: Lovenox subq
--- NOTE | 2020-04-10 17:18 | DS ---
Physical Exam: SUBJECTIVE: Patient seen and examined at bedside, reports some improvement of her pain with palpation. Denies any acute chest pain, nausea, vomiting, sweating, fever, chills, SOB OBJECTIVE: Vital Signs Period Temp Pulse Resp BP Sys/Roberts Pulse Ox Last 24 Hr 97.6 F-98 F 76-95 18-20 102-136/52-85 96-100 PHYSICAL EXAM GENERAL: The patient is awake, alert, and fully oriented, in no acute distress. HEAD: Normal with no signs of trauma. EYES: PERRL, extraocular movements intact, sclera anicteric, conjunctiva clear. No ptosis. ENT: Ears normal, nares patent, oropharynx clear without exudates, moist mucous membranes. NECK: Trachea midline, full range of motion, supple. LUNGS: Breath sounds equal, clear to auscultation bilaterally, no wheezes, no crackles, no accessory muscle use. HEART: Regular rate and rhythm, S1, S2 without murmur, rub or gallop. TTP at the lower border of the sternum ABDOMEN: Soft, nontender, nondistended, normoactive bowel sounds, no guarding, no rebound, no hepatosplenomegaly, no masses. EXTREMITIES: 2+ pulses, warm, well-perfused, no edema. NEUROLOGICAL: Cranial nerves II through XII grossly intact. Normal speech, gait not observed. PSYCH: Normal mood, normal affect. SKIN: Warm, dry, normal turgor, no rashes or lesions noted LABS Laboratory Results - last 24 hr 04/09/20 04/10/20 04/10/20 06:00 07:11 07:11 WBC 6.9 RBC 4.60 Hgb 14.5 Hct 42.6 MCV 92.6 MCH 31.6 MCHC 34.1 RDW 13.1 Plt Count 267 MPV 8.0 Absolute Neuts (auto) 4.1 Neutrophils % 58.9 Lymphocytes % 31.5 D Monocytes % 8.0 Eosinophils % 1.0 Basophils % 0.6 Nucleated RBC % 0 Sodium 142 Potassium 3.7 Chloride 108 H Carbon Dioxide 27 Anion Gap 7 L BUN 18.5 H Creatinine 0.8 Est GFR (CKD-EPI)AfAm 94.19 Est GFR (CKD-EPI)NonAf 81.27 Random Glucose 117 H Hemoglobin A1c % Calcium 8.9 Phosphorus 4.0 Magnesium 2.3 Total Bilirubin 0.6 AST 17 ALT 27 Alkaline Phosphatase 106 Total Protein 7.2 Albumin 3.7 COVID-19 ([facility]) Not detected 04/10/20 07:11 WBC RBC Hgb Hct MCV MCH MCHC RDW Plt Count MPV Absolute Neuts (auto) Neutrophils % Lymphocytes % Monocytes % Eosinophils % Basophils % Nucleated RBC % Sodium Potassium Chloride Carbon Dioxide Anion Gap BUN Creatinine Est GFR (CKD-EPI)AfAm Est GFR (CKD-EPI)NonAf Random Glucose Hemoglobin A1c % 5.6 Calcium Phosphorus Magnesium Total Bilirubin AST ALT Alkaline Phosphatase Total Protein Albumin COVID-19 ([facility]) HOSPITAL COURSE: Date of Admission:04/08/20 59 Y F with PMH of HTN who presents with 2 day of sudden onset substernal chest pain, admitted for atypical chest pain. Worked up for r/o ACS. EKG revealed HR 83, NSR, normal axis, normal intervals, T-wave inversions V1-V2, QTc 397, no comparison. Trops negative x 2. Cardiology consulted, Dr. [place]. Echo revealed impaired LV relaxation, EF 55%. Stress treadmill MIBI was done to evaluate for perfusion defect: Exercise: Normal EKG response to Lexiscan stress, no ischemia/arrythmia, Nuclear: Normal myocardial perfusion w/o evidence of ischemia, EF 65%. Patient remained afebrile and hemodynamically stable, she was clinically stable for discharge and discharged her with instructions and referrals as indicated below. Date of Discharge: 04/10/20 Minutes to complete discharge: 36 Discharge Summary Problems reviewed: Yes Reason For Visit: CHEST PAIN Condition: Stable - Instructions Diet, Activity, Other Instructions: YOUR VISIT You came to the hospital because you were experiencing chest pressure. You were admitted to the hospital for care of this symptom. While here, you were continuously monitored and you were seen by a logistics planning engineer. Your heart was also assessed with an ultrasound (echocardiogram). You are now stable and may return home. your stress test was negative. MEDICATIONS Please continue to take your home medications as prescribed. - Norvasc 5mg daily by mouth - Pepcid 40 mg daily by mouth ADDITIONAL CARE Please make an appointment to follow up with a logistics planning engineer. A referral to Dr. Leblanc has been provided. Please make an appointment to see your primary care provider within 1 week from today for hospital course and blood works. If you do not have one, you can call to schedule an appointment at the [facility] residents' clinic, located at [address] [place] [address]. If you would like to continue seeing Dr. Ronaldo Menchaca, please ask for a Wednesday morning appointment. Additionally It is important to modify diet, lose weight, increase exercise, and continue to take your home medications. - Do NOT smoke or use tobacco - Exercise at least 30-60min of activity daily, try to walk fast to increase your heart rate - Eat healthier diet: Vegetables and fruits Beans or other legumes Lean meats and fish Low-fat or fat-free dairy foods Whole grains Healthy fats, such as olive oil - Maintain a healthy weight - Manage stress. Breathing exercises, meditation, or even wellness apps on your phone can be useful with managing stress. - Get regular health screening: blood pressure, cholesterol level and type 2 diabetes screening If you have a condition such as high cholesterol, high blood pressure or diabetes, your doctor may prescribe medications and recommend lifestyle changes. Make sure to take your medications as your doctor prescribes and follow a healthy-lifestyle plan. ADDITIONAL INFORMATION Please call 911 or come directly to the emergency department if you experience recurrence of the symptoms that brought you to the hospital, unusual headache, vision change, shortness of breath, chest pain, numbness, tingling, loss of alertness/awareness, loss of function, unusual bleeding or any alarming symptoms. Referrals: Herbert Brownlee MD [Staff Physician] - 1 Week (Hospital course, chest pain) Hernán Leblanc MD [Staff Physician] - ON STAFF,NOT [Primary Care Provider] - 1 Week Disposition: HOME - Home Medications Comprehensive Discharge Medication List: Ambulatory Orders Amlodipine Besylate [Norvasc -] 5 mg PO DAILY 04/09/20 Famotidine [Pepcid -] 40 mg PO DAILY 04/09/20 Losartan Potassium 100 mg PO DAILY 04/09/20 This patient is new to me today: No Emergency Visit: Yes ED Registration Date: 04/08/20 Care time: The patient presented to the Emergency Department on the above date and was hospitalized for further evaluation of their emergent condition. Critical Care patient: No - Discharge Referral Referred to [facility] No ATTENDING PHYSICIAN STATEMENT I saw and evaluated the patient. I reviewed the resident's note and discussed the case with the resident. I agree with the resident's findings and plan as documented. SUBJECTIVE: OBJECTIVE: ASSESSMENT AND PLAN:
[2020-04-10] MEDS ORDERED: LIDOCAINE PATCH REMOVAL MC SCH (22:00)
== END 2020-04-10 17:54 | disposition home or self-care (01) ==
LOC: JER 17:48 → JERBED 22:11 → J4W 04-09 17:48
PROVIDERS: ADMIT Hospitalist; ATTEND Internal Medicine
PROC: 3E023GC Introduction of Other Therapeutic Substance into Muscle, Percutaneous Approach (ICD-10-PCS; principal; 2020-04-08)
DX: I10 Essential (primary) hypertension (principal); E78.5 Hyperlipidemia, unspecified; R01.1 Cardiac murmur, unspecified; E66.9 Obesity, unspecified; Z68.33 Body mass index [BMI] 33.0-33.9, adult; F41.9 Anxiety disorder, unspecified; Z29.9 Encounter for prophylactic measures, unspecified; R07.89 Other chest pain; Z91.14 Patient's other noncompliance with medication regimen
CPT/HCPCS: 36415; 71046-TC-FY; 78452-TC; 80053; 80061; 82550; 83036; 83721; 83735; 84100; 84443; 84484; 85025; 85610; 93005; 93010; 93017; 93306-TC; 96372; 99285-25; A9502; G0378; U0003

== ENCOUNTER 2022-05-08 13:56 | Emergency (ER) | payer OTHER ==
[2022-05-08 14:40] VITALS: BP 132/87; PULSE 88; RESP 18; TEMP 97.9; BMI 33.1
[2022-05-08] MEDS ORDERED: KETOROLAC TROMETHAMINE 30 MG/1 ML VIAL IM ONE (15:15)
[2022-05-08] MEDS ORDERED: KETOROLAC TROMETHAMINE 30 MG/1 ML VIAL ONE (15:27)
== END 2022-05-08 16:24 | disposition home or self-care (01) ==
LOC: JERFT 13:56
PROC: 3E0233Z Introduction of Anti-inflammatory into Muscle, Percutaneous Approach (ICD-10-PCS; principal; 2022-05-08)
DX: H65.191 Other acute nonsuppurative otitis media, right ear (principal)
CPT/HCPCS: 99283-25